=== PATIENT | male | born 1975 | race Two or more races ===

== ENCOUNTER 2023-10-11 14:09 | Inpatient (IN) | payer BC ==
[~2023-10-11] VITALS: Ht 264.2 cm; Wt 81.6 kg
[2023-10-11 16:54] LABS: MEAN CELL VOLUME 91.8 fL (80.0-100.00); MEAN CORPUSCULAR HGB CONC 34.8 g/dl (32.0-36.0); RED BLOOD COUNT 6.55 M/uL (4.00-6.00); RED CELL DISTRIBUTION WIDTH 13.9 % (11.5-14.5)
[2023-10-11 17:01] LABS: URINE APPEARANCE Cloudy; URINE BILIRRUBIN Small (NEGATIVE); URINE BLOOD Moderate; URINE COLOR Dark Yellow; URINE GLUCOSE Negative (NEGATIVE); URINE LEUKOCYTE Trace; URINE NITRATE Negative; URINE PROTEIN >=1000 (NEGATIVE)
[2023-10-11 17:02] LABS: URINE BACTERIA 486.3 uL (0.0-1933); URINE EPITHELIAL CELLS 57.6 uL (0.0-38.8); URINE RBC 48.8 uL (0.0-20.8); URINE WBC 9.8 uL (0.0-23.2)
[2023-10-11 17:18] LABS: HEMATOCRIT 60.1 % (39.0-48.0); HEMOGLOBIN 20.9 g/dL (13-16.00); MEAN CORPUSCULAR HEMOGLOBIN 31.9 pg (27.00-32.0); PLATELET COUNT 34 K/uL (150-450)
[2023-10-11 17:20] LABS: ALBUMIN 3.3 gm/dL (3.4-5.0); BILIRUBIN TOTAL 0.83 mg/dL (0.3-1.2); CALCIUM 8.4 mg/dL (8.5-10.1); CREATININE SERUM 2.08 mg/dL (0.70-1.30); GFR 34.11; POTASSIUM 3.53 mEq/L (3.5-5.1); TOTAL PROTEIN 7.3 gm/dL (6.4-8.2)
[2023-10-11 17:31] LABS: URINE CRYSTALS FEW /HPF
[2023-10-11 17:32] LABS: URINE MUCUS MODERATE
[2023-10-11 20:46] LABS: HEMATOCRIT 62.3 % (39.0-48.0); HEMOGLOBIN 21.2 g/dL (13-16.00); MEAN CELL VOLUME 92.2 fL (80.0-100.00); MEAN CORPUSCULAR HEMOGLOBIN 31.4 pg (27.00-32.0); MEAN CORPUSCULAR HGB CONC 34.1 g/dl (32.0-36.0); RED BLOOD COUNT 6.76 M/uL (4.00-6.00); RED CELL DISTRIBUTION WIDTH 13.5 % (11.5-14.5)
[2023-10-11 21:18] LABS: PLATELET COUNT 35 K/uL (150-450)
[2023-10-11 21:27] LABS: INR 1.23; PROTHROMBIN TIME 12.7 SECONDS (9.0-11.5)
[2023-10-11 21:30] LABS: PARTIAL THROMBOPLASTIN TIME 38.3 SECONDS (22.0-34.0)
[2023-10-12 01:56] LABS: INR 1.19; PARTIAL THROMBOPLASTIN TIME 37.4 SECONDS (22.0-34.0); PROTHROMBIN TIME 12.3 SECONDS (9.0-11.5)
[2023-10-12 06:36] LABS: HEMATOCRIT 59.7 % (39.0-48.0); HEMOGLOBIN 20.6 g/dL (13-16.00); MEAN CELL VOLUME 90.5 fL (80.0-100.00); MEAN CORPUSCULAR HEMOGLOBIN 31.2 pg (27.00-32.0); MEAN CORPUSCULAR HGB CONC 34.5 g/dl (32.0-36.0); RED BLOOD COUNT 6.59 M/uL (4.00-6.00); RED CELL DISTRIBUTION WIDTH 13.7 % (11.5-14.5)
[2023-10-12 08:45] LABS: PLATELET COUNT 28 K/uL (150-450)
[2023-10-12 20:46] LABS: ALBUMIN 2.6 gm/dL (3.4-5.0); BILIRUBIN TOTAL 0.88 mg/dL (0.3-1.2); BILIRUBIN,CONJUGATED 0.47 mg/dL (0.0-0.2); BILIRUBIN,UNCONJUGATED 0.41 mg/dL (0.0-0.6); CALCIUM 7.7 mg/dL (8.5-10.1); CREATININE SERUM 1.76 mg/dL (0.70-1.30); GFR 41.36; GLOBULINA 3.5 G/DL (2.4-3.5); POTASSIUM 4.06 mEq/L (3.5-5.1); TOTAL PROTEIN 6.1 gm/dL (6.4-8.2)
[2023-10-13 08:25] LABS: PLATELET ESTIMATE DECREASED (NORMAL)
[2023-10-13 11:08] LABS: MEAN CELL VOLUME 91.6 fL (80.0-100.00); MEAN CORPUSCULAR HEMOGLOBIN 31.6 pg (27.00-32.0); MEAN CORPUSCULAR HGB CONC 34.5 g/dl (32.0-36.0); RED BLOOD COUNT 6.33 M/uL (4.00-6.00); RED CELL DISTRIBUTION WIDTH 13.8 % (11.5-14.5)
[2023-10-13 11:16] LABS: PLATELET COUNT 50 K/uL (150-450)
[2023-10-14 07:42] LABS: ALBUMIN 2.3 gm/dL (3.4-5.0); BILIRUBIN TOTAL 0.55 mg/dL (0.3-1.2); CALCIUM 8.1 mg/dL (8.5-10.1); CREATININE SERUM 1.7 mg/dL (0.70-1.30); GFR 43.05; GLOBULINA 3.1 G/DL (2.4-3.5); POTASSIUM 3.97 mEq/L (3.5-5.1); TOTAL PROTEIN 5.4 gm/dL (6.4-8.2)
[2023-10-14 08:09] LABS: HEPATITIS C VIRUS ANTIBODY Non Reactive (Non Reactive); hav igm Negative (Negative); hcv Non Reactive (Non Reactive); hep b c Negative (Negative)
[2023-10-14 10:07] LABS: HAPTOGLOBIN 120 mg/dL (23-355)
[2023-10-15 08:45] LABS: HEMATOCRIT 55.1 % (39.0-48.0); HEMOGLOBIN 19.1 g/dL (13-16.00); MEAN CELL VOLUME 92.2 fL (80.0-100.00); MEAN CORPUSCULAR HEMOGLOBIN 31.9 pg (27.00-32.0); MEAN CORPUSCULAR HGB CONC 34.6 g/dl (32.0-36.0); RED BLOOD COUNT 5.97 M/uL (4.00-6.00); RED CELL DISTRIBUTION WIDTH 13.5 % (11.5-14.5)
[2023-10-15 08:56] LABS: PLATELET COUNT 111 K/uL (150-450)
[2023-10-16 06:08] LABS: HEMATOCRIT 54.8 % (39.0-48.0); HEMOGLOBIN 18.9 g/dL (13-16.00); MEAN CELL VOLUME 91.8 fL (80.0-100.00); MEAN CORPUSCULAR HEMOGLOBIN 31.7 pg (27.00-32.0); MEAN CORPUSCULAR HGB CONC 34.6 g/dl (32.0-36.0); RED BLOOD COUNT 5.96 M/uL (4.00-6.00); RED CELL DISTRIBUTION WIDTH 13.5 % (11.5-14.5)
[2023-10-16 08:20] LABS: PLATELET COUNT 114 K/uL (150-450)
[2023-10-16 18:06] LABS: hiv 1 < 20 (.)
== END 2023-10-16 14:33 | disposition home or self-care (01) | DRG 977 ==
LOC: ER 14:09 → SEC-K 22:42 → MEDJ 10-12 10:07
PROVIDERS: Emergency Medicine; General Practice; Internal Medicine; Internal Medicine Hematology & Oncology; Internal Medicine Infectious Disease; Nurse Practitioner Family; ADMIT Internal Medicine; ATTEND Internal Medicine
PROC: BW40ZZZ Ultrasonography of Abdomen (ICD-10-PCS; principal; 2023-10-11)
DX: D69.6 Thrombocytopenia, unspecified (principal); B20 Human immunodeficiency virus [HIV] disease; N17.9 Acute kidney failure, unspecified; D75.1 Secondary polycythemia; D70.8 Other neutropenia